=== PATIENT | male | born 1985 ===

== ENCOUNTER 2024-04-18 06:57 | Outpatient (RCR) | payer OTHER, SELFPAY | END 2024-04-18 23:59 | disposition home or self-care (01) | LOC: RPT 06:57 | PROVIDERS: ATTENDING PHYSICIAN General Practice | DX: S82.841D Displaced bimalleolar fracture of right lower leg, subsequent encounter for closed fracture with routine healing (principal); Z73.6 Limitation of activities due to disability; R53.1 Weakness; R26.89 Other abnormalities of gait and mobility; R20.0 Anesthesia of skin | CPT/HCPCS: 97110; 97116; 97163 ==